=== PATIENT | female | born 1975 | race Caucasian/White ===

== ENCOUNTER 2017-01-31 11:35 | Emergency (ER) | payer OTHER ==
[~2017-01-31] VITALS: Ht 170.2 cm; Wt 59.6 kg
[~2017-01-31 11:35] MED LIST: ALBUTEROL SULF8.5 GM IH; BACTRIM,SEPT1 TABLET PO; CEFDINIR300 MG PO; CLINDAMYCIN HC300 MG PO; DILANTIN; FIORICET,ESG1 TABLET PO; HYCODAN SYRUP480 ML PO; HYDROCODON-ACE1 EAC7 PO; INDOCIN25 MG PO; LATUDA40 MG PO; LIDODERM 5% P1 PATCH TD; LODINE400 MG PO; NAPROSYN500 MG PO; NAPROXEN500 MG PO; NORCO 5/3251 TABLET PO; NORCO 7.5/321 TABLET PO; PERCOCET 5/31 TABLET PO; PREDNISONE10 MG PO; TOPAMAX100 MG PO; TOPAMAX200 MG PO; ZOFRAN ODT4 MG PO; ZOFRAN4 MG PO
[2017-01-31] MEDS ORDERED: VALIUM5 MG PO (14:04)
[2017-01-31] MEDS ORDERED: PREDNISONE20 MG PO (14:04)
[2017-01-31] MEDS ORDERED: LIDODERM 5% P1 PATCH TD (14:04)
[2017-01-31] MEDS ORDERED: FLEXERIL10 MG PO (14:05)
[2017-01-31] MEDS ORDERED: PERCOCET 5/31 TABLET PO (14:13)
[2017-01-31 14:24] VITALS: BP 96/58
== END 2017-01-31 14:25 | disposition home or self-care (01) ==
LOC: EME 11:35
DX: M54.5 Low back pain (principal)
CPT/HCPCS: 72100; 99281; 99284; J3010; J3360; J7512

== ENCOUNTER 2017-07-01 10:59 | Observation (INO) | payer OTHER ==
[~2017-07-01] VITALS: Ht 168.9 cm; Wt 57.2 kg
[~2017-07-01 10:59] MED LIST changes: +FLEXERIL10 MG PO; +PREDNISONE20 MG PO; +VALIUM5 MG PO
[2017-07-01 12:22] LABS: EOSINOPHIL (%) 0 % (0-5); HEMATOCRIT 40.5 % (36.0-46.0); IMMATURE GRANULOCYTE (%) 0.2 % (0.0-0.7); INSTRUMENT ABS NEUTROPHIL CT 7.3 K/uL; LYMPHOCYTE COUNT 0.9 K/uL (1.0-2.8); MCH 31.9 PG (29.0-34.0); MCHC 33.8 G/DL (30.0-36.0); MCV 94.4 FL (83-99); MEAN PLAT.VOLUME 9.8 uM^3 (9.5-12.4); MONOCYTE (%) 4.9 % (3-12); MONOCYTE COUNT 0.4 K/uL (0-0.8); NEUTROPHIL (%) 84.7 % (45-76); NEUTROPHIL COUNT 7.3 K/uL (1.8-6.4); PLATELET COUNT 257 K/uL (156-360); RBC DIS.WIDTH-CV 12.4 % (11.8-14.6); RBC DIS.WIDTH-SD 43.2 % (39-53); RED BLOOD COUNT 4.29 M/uL (3.80-5.20); WHITE BLOOD COUNT 8.6 K/uL (4.1-10.2)
[2017-07-01 12:38] LABS: CHLORIDE 110 mEq/L (99-109); POTASSIUM 3.6 mEq/L (3.7-5.4); SODIUM 142 mEq/L (136-147)
[2017-07-01 12:40] LABS: GLUCOSE 102 mg/dL (70-99)
[2017-07-01 12:42] LABS: ANION GAP 11 MEQ/L (2-14); TOTAL BILIRUBIN 0.4 mg/dL (0.0-1.0)
[2017-07-01 12:44] LABS: ALKALINE PHOSPHATASE 87 IU/L (3-129); GFR ESTIMATE (CALCULATED) > 59 mL/min/
[2017-07-01 12:45] LABS: UREA NITROGEN (BUN) 14 mg/dL (9-23)
[2017-07-01 12:47] LABS: LIPASE 21 U/L (1.0-51.0)
[2017-07-01 13:45] LABS: ADD MIUA? YES; BILIRUBIN NEGATIVE; BLOOD NEGATIVE; COLOR YELLOW ((YELLOW)); GLUCOSE (STRIP) NEGATIVE; KETONES NEGATIVE; LEUKOCYTES NEGATIVE; NITRITE NEGATIVE; PROTEIN (STRIP) 100; SPECIFIC GRAVITY 1.016 (1.000-1.030); UROBILINOGEN 0.2 MG/DL (0.2-1.0)
[2017-07-01 13:47] LABS: INTERNAL CONTROL VALID? YES
[2017-07-01 13:54] LABS: BACTERIA RARE /HPF; BUDDING YEAST 4+; EPITHELIAL CELLS NONE SEEN /HPF; MUCUS 1+ /LPF; RED BLOOD CELLS 0-5 /HPF (0-5); UCUL ADDED? NO; WHITE BLOOD CELLS 0-5 /HPF (0-5)
[2017-07-01 17:20] VITALS: BP 101/53; BP 111/61; BP 116/79
[2017-07-01 20:00] VITALS: BP 118/74
[2017-07-02] VITALS: BP 115/75
[2017-07-02 03:54] VITALS: BP 118/58
[2017-07-02 05:51] LABS: HEMATOCRIT 37.2 % (36.0-46.0); MCH 31.9 PG (29.0-34.0); MCHC 33.3 G/DL (30.0-36.0); MCV 95.6 FL (83-99); MEAN PLAT.VOLUME 10.1 uM^3 (9.5-12.4); PLATELET COUNT 213 K/uL (156-360); RBC DIS.WIDTH-CV 13.1 % (11.8-14.6); RBC DIS.WIDTH-SD 45.7 % (39-53); RED BLOOD COUNT 3.89 M/uL (3.80-5.20); WHITE BLOOD COUNT 7.4 K/uL (4.1-10.2)
[2017-07-02 06:22] LABS: ALKALINE PHOSPHATASE 68 IU/L (3-129); ANION GAP 7 MEQ/L (2-14); CHLORIDE 111 MEQ/L (99-109); GFR ESTIMATE (CALCULATED) > 59 mL/min/; GLUCOSE 85 mg/dL (70-99); POTASSIUM 3.8 MEQ/L (3.7-5.4); SAMPLE HEMOLYSIS CHECK 0; SAMPLE ICTERIC CHECK 0; SAMPLE LIPEMIA CHECK 0; SODIUM 141 MEQ/L (136-147); TOTAL BILIRUBIN 0.5 MG/DL (0.0-1.0); UREA NITROGEN (BUN) 13 mg/dL (9-23)
[2017-07-02 07:52] VITALS: BP 116/71
[2017-07-02 10:30] LABS: AMPHETAMINES QUANT VALUE 0 NG/ML; BARBITUATES QUANT VALUE 0 NG/ML; BENZODIAZEPINES QUANT VALUE 0 NG/ML; BENZODIAZEPINES, URINE SCREEN Negative (200 ng/mL); OPIATES QUANTITATIVE VALUE 0 NG/ML; PHENCYCLIDINE QUANT VALUE 0 NG/ML
[2017-07-02 12:51] VITALS: BP 116/78
[2017-07-02] MEDS ORDERED: PRILOSEC OTC20 MG PO (13:51)
[2017-07-02] MEDS ORDERED: ZOFRAN4 MG PO (13:51)
== END 2017-07-02 14:12 | disposition home or self-care (01) ==
LOC: EME 10:59 → EDOF 15:02 → 5WEST 15:02 → EDOF 15:02 → ENRESERV 15:04 → 5WEST 17:13
PROVIDERS: Emergency Medicine; Physician Assistant
DX: R11.2 Nausea with vomiting, unspecified (principal); F12.20 Cannabis dependence, uncomplicated; R55 Syncope and collapse; E87.6 Hypokalemia; E86.0 Dehydration; Z85.43 Personal history of malignant neoplasm of ovary; Z85.72 Personal history of non-Hodgkin lymphomas; Z90.710 Acquired absence of both cervix and uterus; Z82.0 Family history of epilepsy and other diseases of the nervous system; Z83.3 Family history of diabetes mellitus; Z88.8 Allergy status to other drugs, medicaments and biological substances
CPT/HCPCS: 71275; 74177; 80053; 80306 90; 81003; 83690; 83735; 84703; 85025; 85027; 99281; 99285; G0378; J1200; J1644; J2405; J2765; J3010; J3480; J7030; S0028

== ENCOUNTER 2018-01-23 12:17 | Inpatient (IN) | payer OTHER ==
[~2018-01-23] VITALS: Ht 167.6 cm; Wt 96.1 kg
[~2018-01-23 12:17] MED LIST changes: +KEPPRA500 MG PO; +PRILOSEC OTC20 MG PO
[2018-01-23 13:56] LABS: BASOPHIL (%) 0.3 % (0-1); BASOPHIL COUNT 0.1 K/uL (0-0.1); EOSINOPHIL (%) 0 % (0-5); HEMATOCRIT 44.3 % (36.0-46.0); HEMOGLOBIN 14.7 G/DL (11.9-15.5); IMMATURE GRANULOCYTE (%) 0.4 % (0.0-0.7); LYMPHOCYTE (%) 11.4 % (15-42); LYMPHOCYTE COUNT 2.6 K/uL (1.0-2.8); MCH 31.7 PG (29.0-34.0); MCHC 33.2 G/DL (30.0-36.0); MCV 95.5 FL (83-99); MONOCYTE (%) 5.5 % (3-12); MONOCYTE COUNT 1.3 K/uL (0-0.8); NEUTROPHIL (%) 82.4 % (45-76); NEUTROPHIL COUNT 18.9 K/uL (1.8-6.4); PLATELET COUNT 265 K/uL (156-360); RBC DIS.WIDTH-CV 12.5 % (11.8-14.6); RBC DIS.WIDTH-SD 44.3 % (39-53); RED BLOOD COUNT 4.64 M/uL (3.80-5.20); WHITE BLOOD COUNT 22.9 K/uL (4.1-10.2)
[2018-01-23 14:06] LABS: ALBUMIN 4.5 g/dL (3.2-4.8)
[2018-01-23 14:07] LABS: CHLORIDE 108 mEq/L (99-109); POTASSIUM 3.9 mEq/L (3.7-5.4); SODIUM 145 mEq/L (136-147)
[2018-01-23 14:09] LABS: GLUCOSE 132 mg/dL (70-99); TOTAL PROTEIN 7.3 g/dL (6.4-8.3)
[2018-01-23 14:11] LABS: TOTAL BILIRUBIN 0.3 mg/dL (0.0-1.0)
[2018-01-23 14:12] LABS: ALKALINE PHOSPHATASE 95 IU/L (3-129)
[2018-01-23 14:13] LABS: CREATININE 0.8 mg/dL (0.6-1.3); GFR ESTIMATE (CALCULATED) > 59 mL/min/
[2018-01-23 14:14] LABS: AST (GOT) 17 IU/L (2-34); UREA NITROGEN (BUN) 13 mg/dL (9-23)
[2018-01-23 14:15] LABS: ALT (GPT) 12 IU/L (3-49)
[2018-01-23 14:16] LABS: CREATINE KINASE 43 IU/L (1-294); TOTAL CK 43 IU/L (1-294)
[2018-01-23 14:21] LABS: QUANTITATIVE HCG < 4.0 MIU/ML
[2018-01-23 14:22] LABS: CK-MB 0.8 ng/mL (0.0-4.9); CKMB RELATIVE INDEX 1.9 (0.0-3.9)
[2018-01-23 16:16] LABS: DIRECT BILIRUBIN 0.2 mg/dL (0.0-0.3); LIPASE 23 U/L (1.0-51.0)
[2018-01-23] MEDS ORDERED: VIMPAT200 MG PO (17:08)
[2018-01-23] MEDS ORDERED: VIMPAT50 MG PO (17:09)
[2018-01-23] MEDS ORDERED: ZOLPIDEM TART6.25 MG PO (17:09)
[2018-01-23 18:17] VITALS: BP 125/72
[2018-01-23 20:00] VITALS: BP 107/56
[2018-01-24] VITALS (7 sets, daily range): BP systolic 95–128; BP diastolic 50–88
[2018-01-24 05:58] LABS: HEMATOCRIT 36.9 % (36.0-46.0); MCH 31.4 PG (29.0-34.0); MCHC 33.9 G/DL (30.0-36.0); MCV 92.7 FL (83-99); PLATELET COUNT 201 K/uL (156-360); RBC DIS.WIDTH-CV 12.5 % (11.8-14.6); RBC DIS.WIDTH-SD 42.9 % (39-53); RED BLOOD COUNT 3.98 M/uL (3.80-5.20); WHITE BLOOD COUNT 9.9 K/uL (4.1-10.2)
[2018-01-24 06:26] LABS: HEMOGLOBIN 12.5 G/DL (11.9-15.5)
[2018-01-25 00:32] VITALS: BP 107/71
[2018-01-25 04:06] VITALS: BP 101/57
[2018-01-25 08:28] VITALS: BP 120/70
[2018-01-25 10:56] VITALS: BP 116/65
[2018-01-25 11:00] LABS: APPEARANCE CLEAR ((CLEAR)); BILIRUBIN NEGATIVE; BLOOD NEGATIVE; COLOR STRAW ((YELLOW)); GLUCOSE (STRIP) NEGATIVE; KETONES NEGATIVE; LEUKOCYTES NEGATIVE; NITRITE NEGATIVE; PROTEIN (STRIP) NEGATIVE; SPECIFIC GRAVITY 1.009 (1.000-1.030); UCUL ADDED? NO; UROBILINOGEN 0.2 MG/DL (0.2-1.0)
[2018-01-25 13:04] VITALS: BP 121/79
[2018-01-25] MEDS ORDERED: OXCARBAZEPINE150 MG PO ×2 (13:10→14:30)
[2018-01-25] MEDS ORDERED: Salonpas 4% Patch TD (13:10)
[2018-01-25] MEDS ORDERED: KLONOPIN0.5 M1 PO (13:13)
[2018-01-25] MEDS ORDERED: OXCARBAZEPINE300 MG PO (14:30)
== END 2018-01-25 15:45 | disposition home or self-care (01) | DRG 101 ==
LOC: EME 12:17 → 3EAST 15:24 → EDOF 15:24 → ENRESERV 15:25 → CANRESERV 15:44 → ENRESERV 17:06 → 3EAST 17:07
PROVIDERS: Emergency Medicine; Hospitalist
DX: G40.409 Other generalized epilepsy and epileptic syndromes, not intractable, without status epilepticus (principal); E87.2 Acidosis; D72.829 Elevated white blood cell count, unspecified; M54.9 Dorsalgia, unspecified; G89.29 Other chronic pain; Z85.72 Personal history of non-Hodgkin lymphomas; Z85.43 Personal history of malignant neoplasm of ovary; Z90.710 Acquired absence of both cervix and uterus; Z79.899 Other long term (current) drug therapy; Z80.9 Family history of malignant neoplasm, unspecified; Z82.0 Family history of epilepsy and other diseases of the nervous system
CPT/HCPCS: 70450; 80053; 80076; 80175 90; 81003; 82248; 82550; 82553; 83690; 84702; 85025; 85027; 93005; 95819; 99281; 99285; J1953; J2060; J2405; J3010; J7030; J7050

== ENCOUNTER 2018-02-23 10:36 | Observation (INO) | payer OTHER ==
[~2018-02-23] VITALS: Ht 165.1 cm; Wt 64.1 kg
[~2018-02-23 10:36] MED LIST changes: +KLONOPIN0.5 M1 PO; +OXCARBAZEPINE150 MG PO; +OXCARBAZEPINE300 MG PO; +Salonpas 4% Patch TD; +VIMPAT200 MG PO; +VIMPAT50 MG PO; +ZOLPIDEM TART6.25 MG PO
[2018-02-23 11:29] LABS: BASOPHIL (%) 0.2 % (0-1); EOSINOPHIL (%) 0 % (0-5); HEMATOCRIT 43.3 % (36.0-46.0); HEMOGLOBIN 15.1 G/DL (11.9-15.5); IMMATURE GRANULOCYTE (%) 0.3 % (0.0-0.7); LYMPHOCYTE (%) 2.6 % (15-42); LYMPHOCYTE COUNT 0.5 K/uL (1.0-2.8); MCH 31.7 PG (29.0-34.0); MCHC 34.9 G/DL (30.0-36.0); MONOCYTE (%) 2.4 % (3-12); MONOCYTE COUNT 0.5 K/uL (0-0.8); NEUTROPHIL (%) 94.5 % (45-76); NEUTROPHIL COUNT 17.9 K/uL (1.8-6.4); PLATELET COUNT 249 K/uL (156-360); RBC DIS.WIDTH-CV 12.5 % (11.8-14.6); RBC DIS.WIDTH-SD 41.8 % (39-53); RED BLOOD COUNT 4.76 M/uL (3.80-5.20); WHITE BLOOD COUNT 18.9 K/uL (4.1-10.2)
[2018-02-23 11:40] LABS: CHLORIDE 105 mEq/L (99-109); POTASSIUM 4.2 mEq/L (3.7-5.4); SODIUM 140 mEq/L (136-147)
[2018-02-23 11:42] LABS: GLUCOSE 122 mg/dL (70-99)
[2018-02-23 11:46] LABS: CREATININE 0.8 mg/dL (0.6-1.3); GFR ESTIMATE (CALCULATED) > 59 mL/min/
[2018-02-23 11:47] LABS: UREA NITROGEN (BUN) 14 mg/dL (9-23)
[2018-02-23 15:29] LABS: ALBUMIN 4.8 g/dL (3.2-4.8)
[2018-02-23 15:32] LABS: TOTAL PROTEIN 7.9 g/dL (6.4-8.3)
[2018-02-23 15:34] LABS: TOTAL BILIRUBIN 0.4 mg/dL (0.0-1.0)
[2018-02-23 15:35] LABS: ALKALINE PHOSPHATASE 104 IU/L (3-129); SERUM ETHYL ALCOHOL < 10 mg/dL
[2018-02-23 15:37] LABS: AST (GOT) 21 IU/L (2-34)
[2018-02-23 15:38] LABS: ALT (GPT) 13 IU/L (3-49)
[2018-02-23 19:34] VITALS: BP 121/56
[2018-02-24 00:02] VITALS: BP 94/52
[2018-02-24 04:38] VITALS: BP 96/55
[2018-02-24 05:08] LABS: APPEARANCE CLEAR ((CLEAR)); BILIRUBIN NEGATIVE; BLOOD NEGATIVE; COLOR YELLOW ((YELLOW)); GLUCOSE (STRIP) NEGATIVE; KETONES 20; LEUKOCYTES NEGATIVE; NITRITE NEGATIVE; PROTEIN (STRIP) 30; SPECIFIC GRAVITY 1.026 (1.000-1.030); UROBILINOGEN 0.2 MG/DL (0.2-1.0)
[2018-02-24 05:19] LABS: BENZODIAZEPINES, URINE SCREEN POSITIVE (200 ng/mL)
[2018-02-24 06:01] LABS: HEMATOCRIT 38.4 % (36.0-46.0); HEMOGLOBIN 13.3 G/DL (11.9-15.5); MCH 31.7 PG (29.0-34.0); MCHC 34.6 G/DL (30.0-36.0); MCV 91.6 FL (83-99); PLATELET COUNT 233 K/uL (156-360); RBC DIS.WIDTH-CV 12.6 % (11.8-14.6); RBC DIS.WIDTH-SD 41.7 % (39-53); RED BLOOD COUNT 4.19 M/uL (3.80-5.20); WHITE BLOOD COUNT 8.9 K/uL (4.1-10.2)
[2018-02-24 06:25] LABS: CHLORIDE 105 MEQ/L (99-109); CREATININE 0.7 MG/DL (0.6-1.3); GFR ESTIMATE (CALCULATED) > 59 mL/min/; POTASSIUM 3.6 MEQ/L (3.7-5.4); SODIUM 140 MEQ/L (136-147); UREA NITROGEN (BUN) 19 mg/dL (9-23)
[2018-02-24 06:26] LABS: GLUCOSE 88 mg/dL (70-99)
[2018-02-24 08:02] VITALS: BP 98/54
[2018-02-24 11:38] VITALS: BP 93/53
[2018-02-24] MEDS ORDERED: TRILEPTAL300 MG PO (12:34)
[2018-02-24 15:09] VITALS: BP 104/56
[2018-02-25 00:26] VITALS: BP 101/55
[2018-02-25 04:10] VITALS: BP 97/52
[2018-02-25 08:36] VITALS: BP 108/58
[2018-02-25] MEDS ORDERED: LEVETIRACETAM500 MG PO (09:06)
[2018-02-25 12:17] VITALS: BP 103/69
== END 2018-02-25 14:46 | disposition home or self-care (01) ==
LOC: EME 10:36 → 3EAST 14:27 → EDOF 14:27 → ENRESERV 14:28 → CANRESERV 14:41 → ENRESERV 14:42 → 3EAST 17:53
PROVIDERS: Emergency Medicine; Physician Assistant
DX: G40.409 Other generalized epilepsy and epileptic syndromes, not intractable, without status epilepticus (principal); F29 Unspecified psychosis not due to a substance or known physiological condition; Z91.14 Patient's other noncompliance with medication regimen; Z91.19 Patient's noncompliance with other medical treatment and regimen; E86.0 Dehydration; G89.29 Other chronic pain; M25.569 Pain in unspecified knee; M19.90 Unspecified osteoarthritis, unspecified site; D72.829 Elevated white blood cell count, unspecified; Z85.43 Personal history of malignant neoplasm of ovary; Z85.72 Personal history of non-Hodgkin lymphomas; Z90.710 Acquired absence of both cervix and uterus; Z90.79 Acquired absence of other genital organ(s); Z90.722 Acquired absence of ovaries, bilateral; Z80.3 Family history of malignant neoplasm of breast; Z88.6 Allergy status to analgesic agent; Z88.5 Allergy status to narcotic agent; Z88.8 Allergy status to other drugs, medicaments and biological substances
CPT/HCPCS: 71045; 80048; 80053; 80306 90; 81003; 85025; 85027; 87040; 99281; 99284; G0378; G0480; G8978 GP CJ; G8979 GP CH; G8987 GO CI; G8988 GO CH; G8989 GO CI; J1630; J1644; J1953; J2060; J2250; J7050

== ENCOUNTER 2018-06-02 21:51 | Inpatient (IN) | payer OTHER ==
[~2018-06-02] VITALS: Ht 168.9 cm; Wt 70.5 kg
[~2018-06-02 21:51] MED LIST changes: +LEVETIRACETAM500 MG PO; +TRILEPTAL600 MG PO
[2018-06-02 23:42] LABS: HEMATOCRIT 37.5 % (36.0-46.0); HEMOGLOBIN 13.7 G/DL (11.9-15.5); MCH 32.2 PG (29.0-34.0); MCHC 36.5 G/DL (30.0-36.0); PLATELET COUNT 238 K/uL (156-360); RBC DIS.WIDTH-CV 11.9 % (11.8-14.6); RBC DIS.WIDTH-SD 38.1 % (39-53); RED BLOOD COUNT 4.26 M/uL (3.80-5.20); WHITE BLOOD COUNT 10.7 K/uL (4.1-10.2)
[2018-06-02 23:52] LABS: ALBUMIN 4.4 g/dL (3.2-4.8)
[2018-06-02 23:53] LABS: CHLORIDE 92 mEq/L (99-109); POTASSIUM 3.6 mEq/L (3.7-5.4); SODIUM 126 mEq/L (136-147)
[2018-06-02 23:55] LABS: GLUCOSE 104 mg/dL (70-99); TOTAL PROTEIN 7.1 g/dL (6.4-8.3)
[2018-06-02 23:57] LABS: TOTAL BILIRUBIN 0.5 mg/dL (0.0-1.0)
[2018-06-02 23:58] LABS: ALKALINE PHOSPHATASE 102 IU/L (3-129); SERUM ETHYL ALCOHOL < 10 mg/dL
[2018-06-02 23:59] LABS: CREATININE 0.7 mg/dL (0.6-1.3); GFR ESTIMATE (CALCULATED) > 59 mL/min/
[2018-06-03] LABS: AST (GOT) 22 IU/L (2-34); UREA NITROGEN (BUN) 8 mg/dL (9-23)
[2018-06-03 00:02] LABS: ALT (GPT) 13 IU/L (3-49); CREATINE KINASE 85 IU/L (1-294); LIPASE 18 U/L (1.0-51.0); TOTAL CK 85 IU/L (1-294)
[2018-06-03 00:08] LABS: QUANTITATIVE HCG 4.7 MIU/ML
[2018-06-03 00:09] LABS: CK-MB 1.5 ng/mL (0.0-4.9); CKMB RELATIVE INDEX 1.8 (0.0-3.9)
[2018-06-03] MEDS ORDERED: VIMPAT200 MG PO (00:41)
[2018-06-03] MEDS ORDERED: CLONAZEPAM1 MG PO (00:41)
[2018-06-03 01:33] LABS: CHLORIDE 95 mEq/L (99-109); POTASSIUM 3.9 mEq/L (3.7-5.4); SODIUM 126 mEq/L (136-147)
[2018-06-03 01:35] LABS: GLUCOSE 101 mg/dL (70-99)
[2018-06-03 01:39] LABS: CREATININE 0.6 mg/dL (0.6-1.3); GFR ESTIMATE (CALCULATED) > 59 mL/min/
[2018-06-03 01:40] LABS: UREA NITROGEN (BUN) 7 mg/dL (9-23)
[2018-06-03 02:12] LABS: CARBAMAZEPINE (TEGRETOL) < 2.0 MCG/ML (4.0-12.0)
[2018-06-03 02:40] LABS: SALICYLATE < 5.0 MG/DL (15-30)
[2018-06-03 02:41] LABS: ACETAMINOPHEN (TYLENOL) < 10 mcg/mL (10-30)
[2018-06-03 03:23] VITALS: BP 117/79
[2018-06-03 06:45] LABS: HEMOGLOBIN 12.3 G/DL (11.9-15.5); MCH 31.4 PG (29.0-34.0); MCHC 35.1 G/DL (30.0-36.0); MCV 89.3 FL (83-99); PLATELET COUNT 221 K/uL (156-360); RBC DIS.WIDTH-CV 12.1 % (11.8-14.6); RBC DIS.WIDTH-SD 39.2 % (39-53); RED BLOOD COUNT 3.92 M/uL (3.80-5.20)
[2018-06-03 08:50] VITALS: BP 115/81
[2018-06-03 09:26] LABS: CHLORIDE 98 MEQ/L (99-109); POTASSIUM 4.5 MEQ/L (3.7-5.4); SODIUM 127 MEQ/L (136-147)
[2018-06-03 09:31] LABS: CREATININE 0.5 MG/DL (0.6-1.3); GFR ESTIMATE (CALCULATED) > 59 mL/min/; GLUCOSE 84 mg/dL (70-99); UREA NITROGEN (BUN) 6 mg/dL (9-23)
[2018-06-03 09:52] LABS: APPEARANCE CLEAR ((CLEAR)); BILIRUBIN NEGATIVE; BLOOD NEGATIVE; COLOR YELLOW ((YELLOW)); GLUCOSE (STRIP) NEGATIVE; KETONES NEGATIVE; LEUKOCYTES NEGATIVE; NITRITE NEGATIVE; PROTEIN (STRIP) NEGATIVE; SPECIFIC GRAVITY 1.013 (1.000-1.030); UCUL ADDED? NO; UROBILINOGEN 0.2 MG/DL (0.2-1.0)
[2018-06-03 09:59] LABS: BENZODIAZEPINES, URINE SCREEN Negative (200 ng/mL)
[2018-06-03 10:13] LABS: URINE OSMOLALITY 436 MOSM/KG (300-1100)
[2018-06-03 11:48] VITALS: BP 137/75
[2018-06-03 16:30] VITALS: BP 122/76
[2018-06-03 20:36] VITALS: BP 124/88
[2018-06-04 00:27] VITALS: BP 107/64
[2018-06-04 03:34] VITALS: BP 100/61
[2018-06-04 06:46] LABS: BASOPHIL (%) 0.8 % (0-1); EOSINOPHIL (%) 2.1 % (0-5); EOSINOPHIL COUNT 0.1 K/uL (0-0.3); HEMATOCRIT 37.6 % (36.0-46.0); HEMOGLOBIN 13.4 G/DL (11.9-15.5); IMMATURE GRANULOCYTE (%) 0.4 % (0.0-0.7); LYMPHOCYTE (%) 49.9 % (15-42); LYMPHOCYTE COUNT 2.6 K/uL (1.0-2.8); MCH 31.6 PG (29.0-34.0); MCHC 35.6 G/DL (30.0-36.0); MCV 88.7 FL (83-99); MONOCYTE (%) 8.4 % (3-12); MONOCYTE COUNT 0.4 K/uL (0-0.8); NEUTROPHIL (%) 38.4 % (45-76); PLATELET COUNT 224 K/uL (156-360); RBC DIS.WIDTH-CV 11.9 % (11.8-14.6); RBC DIS.WIDTH-SD 38.5 % (39-53); RED BLOOD COUNT 4.24 M/uL (3.80-5.20); WHITE BLOOD COUNT 5.2 K/uL (4.1-10.2)
[2018-06-04 07:09] LABS: ALBUMIN 4.1 G/DL (3.2-4.8); ALKALINE PHOSPHATASE 90 IU/L (3-129); ALT (GPT) 10 IU/L (3-49); AST (GOT) 16 IU/L (2-34); CHLORIDE 92 MEQ/L (99-109); CREATININE 0.6 MG/DL (0.6-1.3); GFR ESTIMATE (CALCULATED) > 59 mL/min/; GLUCOSE 84 mg/dL (70-99); POTASSIUM 4.6 MEQ/L (3.7-5.4); SODIUM 125 MEQ/L (136-147); TOTAL BILIRUBIN 0.4 MG/DL (0.0-1.0); TOTAL PROTEIN 6.1 G/DL (6.4-8.3); UREA NITROGEN (BUN) 7 mg/dL (9-23)
[2018-06-04 07:17] VITALS: BP 108/69
[2018-06-04 15:15] VITALS: BP 124/68
[2018-06-04 18:27] LABS: CHLORIDE 93 MEQ/L (99-109); CREATININE 0.5 MG/DL (0.6-1.3); GFR ESTIMATE (CALCULATED) > 59 mL/min/; GLUCOSE 121 mg/dL (70-99); SODIUM 127 MEQ/L (136-147); UREA NITROGEN (BUN) 6 mg/dL (9-23)
[2018-06-05 00:02] VITALS: BP 122/74
[2018-06-05 04:00] VITALS: BP 111/73
[2018-06-05 05:20] LABS: BASOPHIL (%) 0.9 % (0-1); BASOPHIL COUNT 0.1 K/uL (0-0.1); EOSINOPHIL (%) 1.6 % (0-5); EOSINOPHIL COUNT 0.1 K/uL (0-0.3); HEMATOCRIT 40.3 % (36.0-46.0); HEMOGLOBIN 14.4 G/DL (11.9-15.5); LYMPHOCYTE (%) 46.8 % (15-42); LYMPHOCYTE COUNT 2.6 K/uL (1.0-2.8); MCH 31.4 PG (29.0-34.0); MCHC 35.7 G/DL (30.0-36.0); MONOCYTE (%) 9.8 % (3-12); MONOCYTE COUNT 0.5 K/uL (0-0.8); NEUTROPHIL (%) 40.9 % (45-76); NEUTROPHIL COUNT 2.3 K/uL (1.8-6.4); PLATELET COUNT 244 K/uL (156-360); RBC DIS.WIDTH-CV 11.9 % (11.8-14.6); RBC DIS.WIDTH-SD 38.8 % (39-53); RED BLOOD COUNT 4.58 M/uL (3.80-5.20); WHITE BLOOD COUNT 5.5 K/uL (4.1-10.2)
[2018-06-05 05:47] LABS: CHLORIDE 97 MEQ/L (99-109); CREATININE 0.7 MG/DL (0.6-1.3); GFR ESTIMATE (CALCULATED) > 59 mL/min/; GLUCOSE 91 mg/dL (70-99); POTASSIUM 4.5 MEQ/L (3.7-5.4); SODIUM 131 MEQ/L (136-147); UREA NITROGEN (BUN) 7 mg/dL (9-23)
[2018-06-05 07:12] VITALS: BP 115/80
[2018-06-05] MEDS ORDERED: SODIUM CHLORIDE1 G1 PO (10:49)
[2018-06-05] MEDS ORDERED: OXCARBAZEPINE300 MG PO (10:49)
== END 2018-06-05 11:25 | disposition home or self-care (01) | DRG 101 ==
LOC: EME 21:51 → EDOF 06-03 01:53 → 5SOUTH 06-03 02:46
PROVIDERS: Emergency Medicine; Internal Medicine; Internal Medicine Nephrology
DX: G40.909 Epilepsy, unspecified, not intractable, without status epilepticus (principal); Z91.14 Patient's other noncompliance with medication regimen; E86.0 Dehydration; E22.2 Syndrome of inappropriate secretion of antidiuretic hormone; Z91.19 Patient's noncompliance with other medical treatment and regimen; Z90.710 Acquired absence of both cervix and uterus; Z85.43 Personal history of malignant neoplasm of ovary; Z85.72 Personal history of non-Hodgkin lymphomas; Z88.6 Allergy status to analgesic agent; Z88.8 Allergy status to other drugs, medicaments and biological substances
CPT/HCPCS: 70450; 71046; 80048; 80048 91; 80053; 80156; 80306 90; 81003; 82550; 82553; 83690; 83930; 83935; 84300; 84702; 85025; 85027; 95819; 99281; 99285; G0480; J1200; J1644; J2270; J2405; J3475; J7030